=== PATIENT | male | born 1935 | race Caucasian/White ===

== ENCOUNTER → 2023-03-10 | Outpatient (CLI) | payer MEDICARE, SELFPAY ==
--- NOTE | 2023-03-10 17:11 | MRI_ITS ---
EXAM: MR LUMBAR SPINE WITHOUT INTRAVENOUS CONTRAST CLINICAL INDICATION: spinal stenosis TECHNIQUE: Multiplanar and multisequence MR images of the lumbar spine without intravenous contrast. Magnetic field strength 1.5 T. COMPARISON: Lumbar spine x-ray 02/23/2023. FINDINGS: VERTEBRAE: Small hemangioma T12 vertebral body. SPINAL CORD: Unremarkable. Normal position and signal intensity of the conus medullaris. SOFT TISSUES: Unremarkable. KIDNEYS AND URETERS: Cyst measuring up to 6 cm right kidney. DISCS/SPINAL CANAL/NEURAL FORAMINA: L1-L2: Unremarkable. Normal disc height and morphology. Normal spinal canal and lateral recesses. Normal neuroforamina. L2-L3: Mild disc space narrowing and loss of disc signal. Moderate generalized disc bulge. The canal is narrowed to 7 mm. Moderate bilateral facet arthropathy and ligamentum flavum thickening. Normal neuroforamina. L3-L4: Mild disc space narrowing and loss of disc signal. Moderate generalized disc bulge. Canal is narrowed to 6 mm. Moderate bilateral facet arthropathy. Mild bilateral ligamentum flavum thickening. Normal neuroforamina. L4-L5: Moderate disc space narrowing and loss of this signal. Prominent generalized disc bulge. Canal is narrowed to 4.5 mm. Marked effacement of the CSF around the cauda equina with cauda equina compression. Marked bilateral facet arthropathy and moderate ligamentum flavum thickening bilaterally. Normal neuroforamina. L5-S1: Severe disc space narrowing and loss of disc signal. Type I Modic endplate changes. Mild generalized disc bulge. Canal measures 9 mm. Moderate bilateral facet arthropathy and ligamentum flavum thickening. Normal neuroforamina. MRI/Spine Lumbar (Routine) IMPRESSION: 1. Severe spinal stenosis L4-L5 due to generalized disc bulge, severe facet arthropathy and ligamentum flavum thickening. Marked cauda equina compression. 2. Degenerative disc disease L5-S1 with Modic type I endplate changes. Borderline spinal stenosis due to generalized disc bulge, ligamentum flavum thickening, and facet arthropathy. 3. Moderate spinal stenosis L2-L3 due to generalized disc bulge and mild ligamentum flavum thickening. 4. Moderate spinal stenosis L3-L4 due to generalized disc bulge and mild ligamentum flavum thickening. 5. Cyst measuring up to 6 cm right kidney. No follow-up imaging necessary. Electronically Signed: Anup Villalobos MD at 1:07 EDT ,
== END | disposition home or self-care (01) ==
LOC: MRI 17:07
PROVIDERS: PCP Internal Medicine; Referring Provider Orthopaedic Surgery; Visit Provider Orthopaedic Surgery
DX: M48.061 Spinal stenosis, lumbar region without neurogenic claudication (principal)
CPT/HCPCS: 72148

== ENCOUNTER 2023-03-20 11:30 | Observation (INO) | payer MEDICARE, SELFPAY ==
[2023-03-18 14:47] LABS: Hematocrit 33.4 % (40-54); Hemoglobin 11.1 g/dL (13.0-16.5); Mean Corp Hgb Conc 33.2 g/dL (32-36); Mean Corpuscular Hgb 31.3 pg (27.0-32.0); Mean Corpuscular Volume 94.1 fL (80-94); Mean Platelet Vol. 8.9 fl (6.2-12.0); Platelet Count 283 K/mm3 (150-450); RBC Distribution Width CV 12.4 % (11.6-14.6); RBC Distribution Width SD 43.6 fl (35.1-43.9); Red Blood Count 3.55 M/mm3 (4.6-6.2); White Blood Count 4.8 K/mm3 (4.4-11.0)
[2023-03-18 14:50] LABS: Anion Gap 4 (5-15); BUN 13 mg/dL (7-18); BUN/Creat Ratio 10.2 RATIO (10-20); Calcium,Total 9.3 mg/dL (8.5-10.1); Chloride 103 mmol/L (98-107); Creatinine, Serum 1.27 mg/dL (0.70-1.30); EST Glomerular Filtration Rate 57 mL/min (>60); Est Glom Filt Rate - Afr Amer 69 mL/min (>60); Glucose 126 mg/dL (74-106); Sodium Level 135 mmol/L (136-145)
[2023-03-20] VITALS (11 sets, daily range): BP systolic 98–137; BP diastolic 47–93; PULSE 55–72; RESP 16–18; TEMP 36.5–37; O2SAT 94–100; BMI 24.6
[2023-03-20] MEDS: Lactated Ringers 1,000 ML 15 ML IV (07:22)
--- NOTE | 2023-03-20 08:39 | PCM.HP.STD ---
[facility] - General General Date of Service: 03/20/23 Chief Complaint: BPH with obstruction HPI Narrative DEYA BANKS, is a 87 M who presents for transurethral resection of the prostate for obstructing prostate obstruction. [facility] Medical History (Updated 03/13/23 @ 10:08 by Eve Rosenbaum) Anemia Atherosclerotic heart disease of [place] coronary artery without angina pectoris Back pain Bladder disease BPH (benign prostatic hyperplasia) Cardiology follow-up encounter Diverticulosis Essential hypertension History of echocardiogram History of heart attack History of multiple pulmonary nodules History of renal disease History of stress test Influenza A Lymphoma Mixed hyperlipidemia Non-smoker Old myocardial infarction Osteoarthritis Prostate disease Wears glasses Wears hearing aid Home Medications simvastatin 20 mg tablet 20 mg PO QHS 09/07/19 [History Last Taken Unknown] folic acid 400 mcg tablet 800 mcg PO DAILY 09/11/21 [History Last Taken Unknown] cholecalciferol (vitamin D3) 25 mcg (1,000 unit) capsule 25 mcg PO DAILY 10/22/22 [History Last Taken Unknown] lisinopril 20 mg tablet 20 mg PO DAILY 10/22/22 [History Last Taken Unknown] amlodipine 5 mg tablet 5 mg PO DAILY 02/25/23 [History Last Taken Unknown] ciprofloxacin HCl 500 mg tablet (Cipro) 500 mg PO BID #14 tabs 03/20/23 [Rx Last Taken Unknown] Allergy/AdvReac Type Severity Reaction Status Date / Time milk AdvReac Severe Diarrhea Verified 03/13/23 09:55 grass pollen AdvReac Unknown Unknown Verified 03/13/23 09:55 Family History Father Cancer Lung Mother Cancer Gastric Hypertension Brother Cancer Lung Brother Melanoma Surgical History (Updated 03/13/23 @ 10:08 by Eve Rosenbaum) History of coronary artery bypass surgery (~1989) History of gastrectomy Hx of colonoscopy Hx of esophagogastroduodenoscopy Hx of left cataract extraction Hx of right cataract extraction Social History Smoking Status: Never smoker alcohol intake: never substance use type: does not use caffeine: Yes Type: carbonated beverages Number of servings: 1 and coffee Number of servings: 3 Vital Signs Vital Signs Vital Signs: 03/20/23 07:25 03/20/23 07:25 Temperature 97.9 F Temperature Source Temporal Pulse Rate 56 L Respiratory Rate 18 Respiratory Pattern Normal Blood Pressure 137/75 H Blood Pressure Mean 95 Blood Pressure Source Monitor Blood Pressure Position Semi-Fowlers Blood Pressure Location Left Arm Pulse Ox 100 Oxygen Delivery Method Room Air Weight Weight: 75.659 kg Body Mass Index (BMI) 24.6 Results Lab / Micro Data 03/18/23 14:14 03/18/23 14:14
--- NOTE | 2023-03-20 08:40 | DCINST_ITS ---
Discharge Instructions Diet Discharge Diet: No restrictions Activity Discharge Activity: Return to Normal Activity Lifting Restrictions: No heavy lifting for 2 weeks Follow Up Care Please Follow Up With: Paul Nagy MD When: Call for appointment 2 weeks Test Results: Test results from this visit will be discussed in further detail at your follow- up appointment, if applicable. Discharge Plan Admission Primary Reason for Your Visit: [facility] Attending Provider: Paul Nagy Primary Care Provider: Armin Helton Instructions Patient Instructions: [facility] Home Recovery Discharge Orders/Prescriptions Prescriptions: New ciprofloxacin HCl [Cipro] 500 mg tablet 500 mg PO BID Qty: 14 0RF Continued simvastatin 20 mg tablet 20 mg PO QHS folic acid 400 mcg tablet 800 mcg PO DAILY cholecalciferol (vitamin D3) 25 mcg (1,000 unit) capsule 25 mcg PO DAILY lisinopril 20 mg tablet 20 mg PO DAILY amlodipine 5 mg tablet 5 mg PO DAILY Discontinued doxazosin 4 mg tablet 4 mg PO QHS aspirin [Ecotrin Low Strength] 81 mg tablet,delayed release (DR/EC) 81 mg PO DAILY Referrals / Follow Up: Paul Nagy MD [Med Staff - Active Staff] - Armin Helton MD [Primary Care Provider] - Disposition Disposition (needs filled in before D/C Order can be placed): Home, Self Care
[2023-03-20] MEDS: Cefazolin 2 GM in 0.9% Normal Saline 100 ML IV (08:55)
--- NOTE | 2023-03-20 08:55 | PROS_PTH ---
PATIENT: DEYA BANKS LOC: MS3 U#:[id number] AGE/SX: 87/M ROOM: [facility] RE03/20/[address]: Dr. Paul Nagy MD : 1935 BED: 1 DIS: 03/21/2023 SPEC #: [id number] RECD: 03/20/23 14:24 STATUS: ROB DAIGLE #: [id number] MARY JANE: 03/20/23 08:[address]: Paul Nagy DEPT: SURGICAL PATHOLOGY RECD BY: Lizzie Estrada ENTERED: 03/23/23 08:13 SP TYPE: TURP OTHR DR: Dr. Armin Helton MD Tissues: Prostate, NOS Procedures: Surgery Specimen Level IV HEADER OPERATION: Transurethral resection of prostate with Olympus PRE-OP DIAGNOSIS: BPH with obstruction TISSUE SUBMITTED: Prostate MICROSCOPIC DIAGNOSIS Prostate, transurethral resection: Benign prostatic hyperplasia, predominantly stromal type. SJ:cristal 03/24/2023 MICROSCOPIC DESCRIPTION Slides are reviewed. GROSS DESCRIPTION Received is one container labeled with the patient's name and designated prostate. The specimen consists of multiple irregular fragments of pink-giles, rubbery, soft tissue that in aggregate weigh 12.8 gm and measure in aggregate 6.0 x 5.0 x 2.5 cm. Scientific Linguist tissue is submitted in ten cassettes. CLAUS:cristal 03/23/2023 TC:5 CPT: 84822
--- NOTE | 2023-03-20 09:42 | PCM.OPRPT ---
Report of Operation Date of Procedure: 03/20/23 Pre-Operative Diagnosis: BPH with obstruction Post-Operative Diagnosis: BPH with obstruction with distended bladder Surgery/Procedure Performed:: Transurethral section of prostate Description of Surgical Findings:: In the preoperative setting I discussed with the patient how the surgery would be done with expect afterwards. We discussed how a prostate resection is done and we discussed the risk of the surgery including, bleeding, infection, retrograde ejaculation, changes with ejaculation or intercourse,. We discussed the possibility that the resection of the prostate may not alleviate his urinary symptoms. We discussed the small risk of developing scar tissue along the urethral channel and strictures. We also discussed the chance of the prostate could grow back and he may need further surgery or treatment in the future for prostate problems. Patient was taken back to the operating room, timeout procedure was performed, he was identified and marked and placed on the operating room table. He underwent general anesthesia. He was placed in dorsolithotomy position. Penis and testicles were prepped and draped in usual sterile fashion. Went into the bladder using the visual obturator with a resectoscope. Once inside the bladder identified the right and left ureteral orifice. I then identified the prostate and the anatomy of the prostate. I marked out the area of the sphincter and the verumontanum was identified. I then proceeded with the prostate resection first resected the median lobe. And then resected the right lobe of the prostate. Then to resect the left lobe of the prostate. I then resected the apical tissue of the prostate. This was a complete resection of all obstructive tissue to improve voiding and relieve obstruction. I then made sure that there was no injury to the sphincter or the verumontanum was still intact. At the end of the resection all the chips were Ellik out of the bladder. I then identified the left and right ureteral orifice and these were confirmed to be in good position and effluxing and not injured. The resectoscope was removed, a 22 [place] catheter was placed into the bladder on continuous irrigation. And the urine was fairly light pink color and draining normally. He was taken back to the PACU in good condition. Type of Anesthesia: General Drains: 22fr 3 way Admit VTE Documentation VTE Present on Admission: No VTE Mechan Device Prophylaxis: SCD's VTE Pharm Prophylaxis ordered?: No
[2023-03-20] MEDS: 0.9% Normal Saline 1,000 ML 125 ML IV ×2 (11:15→18:07)
--- NOTE | 2023-03-20 16:11 | NURSING ---
Dangled on edge of bed for a few minutes. This RN then assisted pt into chair. Call light, phone and bedside table in reach.
[2023-03-20] MEDS: Atorvastatin Calcium 10 MG Tablet PO (21:23)
[2023-03-20] MEDS: amLODIPine 5 MG Tablet PO (21:23)
[2023-03-20] MEDS: Lisinopril 20 MG Tablet PO (21:23)
[2023-03-20] MEDS: Ciprofloxacin 400 MG/200 ML BAG 200 MG IV (21:23)
[2023-03-20] MEDS: Docusate Sodium 100 MG Capsule 200 MG PO (21:23)
[2023-03-21] MEDS: 0.9% Normal Saline 1,000 ML 125 ML IV (03:01)
[2023-03-21] MEDS: 0.9% Saline Lock 10 ML Syringe IV (03:02)
[2023-03-21 03:26] VITALS: BP 113/56; PULSE 65; RESP 16; TEMP 36.9; O2SAT 98
--- NOTE | 2023-03-21 06:49 | PCM.PN.GU ---
Subjective Subjective 87-year-old male status post TURP we will remove the catheter today for voiding trial he does have a very large distended bladder so I may take him a while to start urinating. Objective Data Objective Data Vital Signs: Vital Signs Temp Pulse Resp BP Pulse Ox O2 Del Method 98.5 F 65 16 113/56 L 98 Room Air 03/21/23 03:26 03/21/23 03:26 03/21/23 03:26 03/21/23 03:26 03/21/23 03:03/21/23 03:26 Oxygen Delivery Method Room Air Weight: 75.659 kg Body Mass Index (BMI) 24.6 Intake & Output: Intake and Output for Last 24 Hours 03/19/23 03/20/23 03/21/23 23:59 23:59 23:59 Intake Total 2777.58 / 2777.58 456.25 / 456.25 Output Total 1900 / 1900 900 / 900 Balance 877.58 / 877.58 -443.75 / -443.75 Lab / Micro Data 03/18/23 14:14 03/18/23 14:14
[2023-03-21 08:11] VITALS: BP 125/61; PULSE 64; RESP 16; TEMP 36.6; O2SAT 97
[2023-03-21] MEDS: Docusate Sodium 100 MG Capsule 200 MG PO (08:14)
[2023-03-21] MEDS: Ciprofloxacin 400 MG/200 ML BAG 200 MG IV (08:14)
[2023-03-21 18:08] VITALS: BP 123/67; PULSE 58; RESP 16; TEMP 36.8; O2SAT 100
== END 2023-03-21 18:19 | disposition home or self-care (01) ==
LOC: SDC 11:38 → MS3 11:38
PROVIDERS: Anesthesiology; Admitting Provider Urology; PCP Internal Medicine; Referring Provider Urology; Visit Provider Urology
PROC: (CPT 52601; principal; 2023-03-20 08:45)
DX: N40.1 Benign prostatic hyperplasia with lower urinary tract symptoms (principal); I25.10 Atherosclerotic heart disease of native coronary artery without angina pectoris; N13.8 Other obstructive and reflux uropathy; N32.89 Other specified disorders of bladder; Z95.1 Presence of aortocoronary bypass graft; E78.2 Mixed hyperlipidemia; I25.2 Old myocardial infarction; Z79.899 Other long term (current) drug therapy
CPT/HCPCS: 52601; 00914; 36415; 51702; 80048; 85027; 88305; 93005; 96361; 96365; 96366; 99221; J7030; J7120; A4216; G0378; J0744; J2405

== ENCOUNTER → 2023-05-11 | Outpatient (CLI) | payer MEDICARE, SELFPAY ==
[2023-04-29 12:23] LABS: Absolute Lymphocyte Count 1.78 X10^3/uL (0.83-4.51); Absolute Neutrophil Count 2.3 X10^3/uL (2.0-7.7); Basophil# 0.03 X10^3/uL; Basophil% 0.6 % (0-1); Eosinophil# 0.13 X10^3/uL; Eosinophils% 2.8 % (0-5); Hematocrit 34.7 % (40-54); Hemoglobin 11.4 g/dL (13.0-16.5); Lymphocyte # 1.78 X10^3/ul (0.83-4.51); Lymphocyte % 37.8 % (19-41); Mean Corp Hgb Conc 32.9 g/dL (32-36); Mean Corpuscular Hgb 30.8 pg (27.0-32.0); Mean Corpuscular Volume 93.8 fL (80-94); Mean Platelet Vol. 8.4 fl (6.2-12.0); Monocyte# 0.44 X10^3/uL; Monocyte% 9.3 % (0-10); NRBC Flagged by Analyzer 0 % (0-5); Neutrophil # 2.32 X10^3/uL (2.7-7.7); Neutrophil % 49.3 % (47-70); Platelet Count 333 K/mm3 (150-450); RBC Distribution Width CV 12.7 % (11.6-14.6); RBC Distribution Width SD 43.9 fl (35.1-43.9); White Blood Count 4.7 K/mm3 (4.4-11.0)
[2023-04-29 13:04] LABS: Magnesium 2.2 mg/dL (1.6-2.6)
[2023-04-29 13:41] LABS: HIV - WCH Non-Reactive (Nonreactive); Hepatitis B Surface Antibody Non-Reactive; Hepatitis C Antibody Non-Reactive (Nonreactive)
[2023-04-30 05:07] LABS: Hepatitis A AB, Total Negative (Negative)
== END | disposition home or self-care (01) ==
LOC: PAT 06-19 08:55
PROVIDERS: Anesthesiology; PCP Internal Medicine; Referring Provider Orthopaedic Surgery; Visit Provider Orthopaedic Surgery
DX: Z01.812 Encounter for preprocedural laboratory examination (principal); Z01.818 Encounter for other preprocedural examination
CPT/HCPCS: 36415; 83735; 85025; 86703; 86706; 86708; 86803; 87081

== ENCOUNTER 2023-06-29 10:45 | Observation (INO) | payer MEDICARE, SELFPAY ==
--- NOTE | 2023-06-26 09:27 | PCM.HP.BLA ---
History and Physical Add?Addendum Date of Service: 02/25/23 MR#: [id number] Acct: [id number] Name: DEYA BANKS Rep #: [id number] : 1935 Provider: Dr. Wilbert Bauer DO Age/Sex: 87/M [place] [facility] [place] Status: Signed Intake Vital Signs 10/22/2313:05 02/25/2314:45 Height 5 ft 9 in 5 ft 9 in Weight: 172 lb 8 oz 168 lb BMI 25.4 24.7 BP 136/78 H Blood Pressure Location Lt brachial Position Sitting Respiration 16 Pulse 72 Pulse Source Auscultation Intake Visit Reasons: LUMBER SPINE Chief Complaint: low back pain, bilateral feet numbness Is patient in pain?: Yes (low back ) Pain scale (1-10): 1 Allergies milk Adverse Reaction (Severe, Verified 02/25/23 14:50) Diarrheagrass pollen Adverse Reaction (Unknown, Verified 02/25/23 14:50) Unknown Medications aspirin 81 mg tablet,delayed release (Ecotrin Low Strength) 81 mg PO DAILY 09/07/19 [History Confirmed 10/22/22] doxazosin 4 mg tablet 4 mg PO DAILY 09/07/19 [History Confirmed 10/22/22] simvastatin 20 mg tablet 20 mg PO DAILY 09/07/19 [History Confirmed 10/22/22] folic acid 400 mcg tablet 800 mcg PO DAILY 09/11/21 [History Confirmed 10/22/22] cholecalciferol (vitamin D3) 25 mcg (1,000 unit) capsule 25 mcg PO DAILY 10/22/22 [History Confirmed 10/22/22] lisinopril 20 mg tablet 20 mg PO DAILY 10/22/22 [History Confirmed 10/22/22] amlodipine 5 mg tablet 5 mg PO DAILY 02/25/23 [History Confirmed 02/25/23] [facility] [place] Medical History Atherosclerotic heart disease of [place] coronary artery without angina pectoris BPH (benign prostatic hyperplasia) Diverticulosis Essential hypertension History of multiple pulmonary nodules Influenza A Lymphoma Mixed hyperlipidemia Old myocardial infarction Osteoarthritis Surgical History History of coronary artery bypass surgery (~1989) History of gastrectomy Family History Father Cancer LungMother Cancer Gastric HypertensionBrother Cancer LungBrother Melanoma Social History Smoking Status: Never smoker alcohol intake: never substance use type: does not use caffeine: Yes Type: carbonated beverages Number of servings: 1 and coffee Number of servings: 3 HPI LUMBER SPINE Chief Complaint: low back pain, bilateral feet numbness Details: Parts of this documentation were recorded by a scribe, this documentation accurately reflects the service provided and the decisions made by me, Dr. Wilbert Bauer, DO 02/25/23 [id number]. DEYA BANKS is a 87 year old M here today for low back pain and bilateral feet numbness after standing for 2 mins or more. He advises he has been experiencing these symptoms for the last 2 years and is gradually getting worse. He has almost fallen once d/t his foot numbness. He states he sits down and the numbness is relieved after about 1 minute. He raters his low back pain is an intermittent ache in the center of his low back. He is not experiencing radiating back pain. Pt. is scheduled to have prostate surgery in March 20, 2023 and is not taking aspirin at this time. He has had no recent back Xrays or MRI. He had a CT of hiss chest in July 2022 and has brought the report d/t having a reference to his spine. Mr. Banks is a most delightful gentleman 87 years old has a chief complaint of numbness in his feet and his calfs. This started gradually 2 or 3 years ago and has gradually worsened over time. He cannot stand for very long because he gets numb or and number as time goes on he has to sit down and he gets almost immediate relief. He has some low back pain but not all that much. If he is walking in a grocery store he leans forward on the cart as that helps him keep going. Basically this gentleman is describing a neurogenic claudication. He is not diabetic. On examination he can stand on his toes and he can stand on his heels without too much of a difficulty. He has little pain with extension or flexion at this time. He has excellent motor strength of all the major muscle groups of both lower extremities. He has barely perceptible patellar reflexes and absent Achilles reflexes bilaterally. He has no long tract signs. Clonus is absent and Babinski's are downgoing. Plain x-rays of the lumbar spine demonstrate degeneration particularly at L5-S1 which is quite advanced. He has a slight degenerative listhesis of L4 and L5. I suspect he has significant spinal stenosis particularly at L4-5. Ordering an MRI scan of the lumbar spine. I will see him after the MRI scan and make further recommendations. I explained to him that if he does not have spinal stenosis then my second guess would be that he has an idiopathic neuropathy. In that event we would order EMG nerve conduction studies of both lower extremities. I will see him after the MRI scan. Coding Level of Care Code Off vis,new,level 3 Diagnoses Spinal stenosis of lumbar region with neurogenic claudication M48.062 Neurogenic claudication status: with neurogenic claudication Time Spent (min) 30 Assessment and Plan Assessment and Plan (1) Spinal stenosis of lumbar region:
[2023-06-29] VITALS (13 sets, daily range): BP systolic 111–149; BP diastolic 54–88; PULSE 64–86; RESP 14–18; TEMP 36–37.2; O2SAT 95–100; BMI 25.0
[2023-06-29] MEDS: Lactated Ringers 1,000 ML 15 ML IV ×3 (06:29→12:21)
[2023-06-29] MEDS: Acetaminophen 500 MG Tablet 1000 MG PO ×3 (06:30→21:48)
[2023-06-29] MEDS: Magnesium 1 GM over 15 mins IV (06:30)
--- NOTE | 2023-06-29 06:30 | RAD_ITS ---
STUDY: X-RAY - LUMBAR SPINE REASON FOR EXAM: Male, 87 years old. LAMINECTOMY L3-4, L4-5 TECHNIQUE: Single lateral view(s) of the lumbar spine were obtained. COMPARISON: None FINDINGS: The localization instrument is seen posterior to the L5-S1 disc space level. RAD/Spine 1 View Any Level IMPRESSION: The localization and treatment is seen posterior to the L5-S1 disc space level. Electronically Signed: Pawel Bhatt MD at 8:48 EDT ,
[2023-06-29] MEDS: Cefazolin 2 GM in 0.9% Normal Saline (100mL Bag) 100 ML IV (07:49)
[2023-06-29 08:13] LABS: Bedside Glucose 52 mg/dL (74-106)
[2023-06-29 08:13] LABS: Bedside Glucose 53 mg/dL (74-106)
[2023-06-29] MEDS: THROMBIN (RECOMBINANT) 20,000 UNIT VIAL 20000 UNIT TOPICAL (08:28)
--- NOTE | 2023-06-29 11:00 | PCM.OPRPT ---
Report of Operation Description of Surgical Findings:: Preoperative diagnosis: Spinal stenosis L4-5 and L3-4 Postoperative diagnosis: Same Procedures: #1 lumbar laminectomy decompression L4-5 CPT code 70958 #2 lumbar laminectomy decompression L3-4 CPT code 58005/51 Surgeon: Dr. Bauer First assistants: Dr. Dodd and Elvia Araujo NP Anesthesia: General endotracheal by [employer] sales and service associate EBL: Less than 50 cc Drains: None Complications: None Procedure: Patient was taken to the OR where he was placed under general endotracheal anesthesia. A Ayala catheter was inserted. Neuro monitoring placed her leads on the patient. The patient was then moved onto the prone position on the Geoffrey frame. After appropriate positioning with care to protect his bony prominences his genitalia his brachial plexus bilaterally his ulnar nerves of both elbows and the cervical spine and facial features the back was prepped and draped in standard fashion. I made a longitudinal incision centered over what we thought would be L4-5 this was a very small incision. I opened the lumbar fascia to the left of the spinous processes elevated and gently and put a marker in place at what we thought would be L4-5 however turned out that it was L5-S1. So I simply moved up 1 level and marked it and extended the incision cephalad. Then open the rest of the lumbar fascia in the midline started elevating the paravertebral muscles off the lamina of L3 and the lamina of L4 and perhaps a very top of the lamina of S1. This was then packed after irrigation. Dr. Miranda then opened the right side doing the same exact thing elevated the paravertebral muscles off the lamina of 3 and the lamina of L4. This was then packed. I then removed the packing from my side got any bleeders that were available. We did the same thing on the right side. The self-retaining super slide retractors were then put in place. Extraneous tissue was removed with both cautery and Dave rongeurs. This was done on both sides. I then began removal of first the spinous process of L4 this was done using double-action rongeurs. All the way down to the lamina. I then thinned the lamina down especially in the midline with the double-action rongeurs I release ligamentum flavum off the underside of the lamina on both the right and left sides. Began the laminectomy then with 45 degree Kerrison rongeurs. This was done until the top of the ligamentum flavum was reached. We then split the ligamentum flavum in the middle where its at its weakest point. I then used curettes to release the ligamentum flavum off the top of the lamina of L5. This was done on both sides. Then began removal of the ligamentum flavum removing more from the right side with 45 degree Kerrison rongeurs at times I used cottonoids to protect the dura and continue the removal of the ligamentum flavum and open the lateral recess completely including a little removal of bone. Probably medial facet. This was also done on the left side. Dr. Miranda removing the remaining ligamentum flavum from the lateral recess and opening and. We then checked both foramina and they were found to be quite open. We then moved up to the next level I used a double-action rongeurs again to remove the spinous process of L3. Again I thinned down the lamina with double-action rongeurs I release ligamentum flavum off the underside of the lamina of L3 and began the process of laminectomy on both sides. I then split the ligamentum flavum in its midline as I did at the level below and released it first off the top of the L4 lamina on both sides. I then used the 45 degree Kerrison rongeurs to begin the removal of the ligamentum flavum. Again the dura was protected with cottonoids. Dr. Miranda then removed the remaining ligamentum flavum off the left side from the right side. This completely decompressed the nerve roots on both sides and the foramina below were found to be quite open. Note that thorough irrigation was carried out every 15 minutes or so in the course of the case to prevent infection. At the end of the case we had excellent hemostasis. The decision was made not to put a drain in place. I then reapproximated the lumbar fascia using [id number] suture with #1 Vicryl followed by closure of subcutaneous tissues with 2-0 Vicryl in interrupted fashion. The skin was approximated using skin clips. The patient was then recovered in the OR moved to his hospital bed and taken to recovery in satisfactory condition. This is the end of operative summary on Gen Myers. This is Dr. Bauer dictating.
[2023-06-29] MEDS: Lactated Ringers 1,000 ML 100 ML IV (13:34)
[2023-06-29] MEDS: Cefazolin 1 GM/50 ML BAG IV ×2 (13:46→21:47)
[2023-06-29 14:19] LABS: Bedside Glucose 146 mg/dL (74-106)
--- NOTE | 2023-06-29 14:58 | PN.HOSP_ITS ---
Subjective Subjective This 87-year-old white male was seen at the request of spinal surgery regarding medical management after he underwent a laminectomy today. Patient had a decompression L4-5 and L3-4. Past medical history includes essential hypertension, lymphoma, coronary artery disease, and hyperlipidemia. Patient does not complain of any shortness of breath or chest pain at the time of my examination. His family was in the room I talk with him briefly also. Objective Data Objective Data Vital Signs: Vital Signs Temp Pulse Resp BP Pulse Ox O2 Del Method O2 Flow Rate 97.4 F L 71 18 143/88 H 100 Room Air 4 06/29/23 12:50 06/29/23 12:50 06/29/23 12:50 06/29/23 12:50 06/29/23 13:41 06/29/23 13:41 06/29/23 12:15 Oxygen Flow Rate (L/min) 4 Oxygen Delivery Method Room Air Weight: 75.659 kg Body Mass Index (BMI) 25.0 Intake & Output: Intake and Output for Last 24 Hours 06/27/23 06/28/23 06/29/23 23:59 23:59 23:59 Intake Total 1294.75 / 1294.75 Output Total 1180 / 1180 Balance 114.75 / 114.75 Lab / Micro Data Labs: Laboratory Results - last 24 hr 06/29/23 06:11: POC Glucose 53 L 06/29/23 06:12: POC Glucose 52 L 06/29/23 14:00: POC Glucose 146 H Radiography Diagnostic Testing: Radiology Impression Spine X-Ray 06/29/23 06:30 IMPRESSION: The localization and treatment is seen posterior to the L5-S1 disc space level. Electronically Signed: Pawel Bhatt MD at 8:48 EDT , Physical Exam Const alert, oriented x3, no apparent distress, average body habitus and healthy appearing Constitutional Narrative: Patient appears younger than stated age General Appearance: cooperative, well kempt and well developed Orientation / Consciousness: awake, oriented to person, oriented to place and oriented to time HEENT normocephalic, head/scalp atraumatic and moist oral mucous membranes Eyes PERRL, EOMs intact bilaterally and conjunctivae normal Neck supple, no JVD, thyroid normal and no carotid bruits General: trachea midline Resp normal respiratory effort, no retractions, no use of accessory muscles and clear to auscultation bilaterally Auscultation: Negative for rales, rhonchi or wheezes Cardio regular rate, regular rhythm, S1 normal heart sound, S2 normal heart sound, no murmurs, no rub and no gallops GI normal to inspection, nondistended, normoactive bowel sounds, soft to palpation, non-tender and non-distended Extremity no clubbing, cyanosis or edema Skin no rashes or lesions noted General Skin Exam: no breakdown Neuro oriented x3, CN's II-XII intact bilaterally, moves all extremities, no focal motor deficits and no sensory deficits noted Sensorium / Orientation: awake, alert, oriented to person, oriented to place and oriented to time Speech: speech normal Psych affect normal Assessment & Plan Assessment/Plan (1) Essential hypertension: PLAN: Plan 1. 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
[2023-06-29] MEDS: Ensure Surgery 237 ML LIQUID PO (17:28)
[2023-06-29] MEDS: Lisinopril 20 MG Tablet PO (21:48)
[2023-06-29] MEDS: amLODIPine 5 MG Tablet PO (21:48)
[2023-06-29] MEDS: Atorvastatin Calcium 10 MG Tablet PO (21:48)
[2023-06-30 00:50] VITALS: BP 112/63; PULSE 71; RESP 16; TEMP 37.2; O2SAT 97
[2023-06-30 04:50] VITALS: BP 110/66; PULSE 61; RESP 16; TEMP 37; O2SAT 97
[2023-06-30] MEDS: Acetaminophen 500 MG Tablet 1000 MG PO ×3 (05:26→20:38)
[2023-06-30 08:15] VITALS: O2SAT 100
[2023-06-30] MEDS: Ensure Surgery 237 ML LIQUID PO ×2 (09:22→17:09)
--- NOTE | 2023-06-30 10:35 | CASEMGMT ---
[facility] Assessment: Face to Face with pt for initial transition planning/care coordination assessment. RN JONO introduced self and role at [facility], pt voices understanding and consents to assessment. Pt is A&O x4 and answers all questions appropriately at this time. Pt sitting up in chair in no distress. Care providers, pharmacy, and demographics verified/updated. Admitting Dx: decompression laminectomy L4-5 and L3-4 PCP:Danie Specialists:reinaldo Bauer; YOLIS, cardio [facility]erred [facility] Prescription Benefit: yes LNOK: Ashanti Myers, Living Arrangements: Pt lives with in a two story home with no steps to enter. Pt has a bed and bath on main floor. Pt reports he was I in ADL's prior to surgery and denies concerns at home. Transportation: Pt drives self and denies concerns with transportation. Pt or dtr to provide transportation until pt can drive again. DME:w/c, cane- Does not use [facility] HHC/SNF: Denies hx of Pt states no concerns with going home at time of dc. Pt states no further concerns/needs. CM to follow. Advised pt to ask CM if any further question/concerns/needs arise, voices understanding. Pt Goal: Home Plan: Home
[2023-06-30 11:00] VITALS: BP 121/93; PULSE 69; RESP 18; TEMP 36.6; O2SAT 98
--- NOTE | 2023-06-30 11:12 | PCM.PROGNOTE ---
Subjective Subjective Patient seen and examined. He feels well and has no complaints. He had an uneventful night. Pain is well controlled. He did well with PT/OT. TOday is POD 1 for lumbar laminectomy of L3-4 and L4-5. Review of systems is otherwise negative. Objective Data Objective Data Vital Signs: Vital Signs Temp Pulse Resp BP Pulse Ox O2 Del Method O2 Flow Rate 98.6 F 61 16 110/66 97 Room Air 4 06/30/23 04:50 06/30/23 04:50 06/30/23 04:50 06/30/23 04:50 06/30/23 04:50 06/30/23 04:50 06/29/23 12:15 Oxygen Flow Rate (L/min) 4 Oxygen Delivery Method Room Air Weight: 166 lb 12.8 oz Body Mass Index (BMI) 25.0 Intake & Output: Intake and Output for Last 24 Hours 06/28/23 06/29/23 06/30/23 23:59 23:59 23:59 Intake Total 2169.75 / 2169.75 175 / 175 Output Total 1730 / 2130 700 / 700 Balance 439.75 / 39.75 -525 / -525 Lab / Micro Data Labs: Laboratory Results - last 24 hr 06/29/23 14:00: POC Glucose 146 H Physical Exam Const alert, oriented x3 and no apparent distress General Appearance: cooperative HEENT normocephalic, head/scalp atraumatic, moist oral mucous membranes and oropharynx normal Eyes PERRL and EOMs intact bilaterally Neck no lymphadenopathy and supple Lymph Lymphatic: no lymphadenopathy noted and no lymphedema noted Resp normal respiratory effort, normal air movement and clear to auscultation bilaterally Cardio regular rate, regular rhythm, S1 normal heart sound, S2 normal heart sound and no murmurs GI normal to inspection, nondistended, normoactive bowel sounds, soft to palpation, non-tender and non-distended Extremity normal capillary refill, no clubbing, cyanosis or edema and no calf tenderness General Extremity: no tenderness to palpation of joints or extremities Skin Skin Narrative: intact dressing over lower spine at site of surgery General Skin Exam: no breakdown Neuro CN's II-XII intact bilaterally, no focal motor deficits, no sensory deficits noted and deep tendon reflexes 2+ bilaterally Motor Exam: strength 5/5 throughout and general weakness Psych thought process normal and cooperative Appearance: appropriate Assessment & Plan Assessment/Plan (1) Spinal stenosis of lumbar region: QUALIFIERS: Neurogenic claudication status: with neurogenic claudication Qualified Code(s): M48.062 - Spinal stenosis, lumbar region with neurogenic claudication PLAN: Plan # Lumbar spine stenosis s/p lumbar laminectomy at L3-4 and L4-5 management as per spine surgery PT/OT on board fall precautions on PO tylenol, oxycodone and morphine prn for pain #Hyperlipidemia: on statin #CAD: stable. s/p CABG ~ 1989. #Hypertension: on amlodipine and lisinopril. #History of lymphoma: stable. S/p treatment DVT prophylaxis; SCDs Disposition: as per primary team. Charges/Coding Visit Charges Inpatient E&M: 10078 Subs Hosp L2
--- NOTE | 2023-06-30 13:48 | DCINST_ITS ---
Discharge Instructions Activity May shower in (days): 4 May resume sexual activity in: 6 weeks Lifting Restrictions: 15# Dressing / Incision Remove Dressing in: 3 days Follow Up Care Test Results: Test results from this visit will be discussed in further detail at your follow- up appointment, if applicable. Discharge Plan Admission Admit Date/Time: 06/29/23 10:45 Primary Reason for Your Visit: back surgery Attending Provider: Wilbert Bauer Primary Care Provider: Armin Helton Consulting Providers: Marion Arizmendi; Randy Caldwell; Ania Schultz; Ania Correa; Vadim Joseph; Hanny Barroso; Ivy Cristina; Hiram Shea; Hiram Vance; Low Barros; Aamir Joyce; Suraj Hong; Zuhair Agee; Gen Cuevas; Jerry Jo; Carol Blake; Barry Schaefer; Valentina Peña; Jonel Fuchs; Lj Keller; Verona Hatfield; Eliseo Barragan; Maribell Bear NP; Inderjit Jones Discharge Orders/Prescriptions Prescriptions: No Action simvastatin 20 mg tablet 20 mg PO QHS folic acid 400 mcg tablet 800 mcg PO QHS cholecalciferol (vitamin D3) 25 mcg (1,000 unit) capsule 25 mcg PO QHS lisinopril 20 mg tablet 20 mg PO QHS amlodipine 5 mg tablet 5 mg PO QHS Referrals / Follow Up: Armin Helton MD [Primary Care Provider] - Disposition Disposition (needs filled in before D/C Order can be placed): Home, Self Care
--- NOTE | 2023-06-30 13:50 | PCM.DC.SUM ---
Providers Date of Admission: 06/29/23 Primary Care Physician: Dr. Armin Helton MD Attending Physician: Mr. Aguilera was admitted yesterday morning and underwent lumbar laminectomy decompression at the L4-5 and L3-4 levels. On rounds today he is doing well. His dressing is dry. He reports that he actually got a good night sleep because he does not have the bad back pain that he had been living in. In addition to that his leg pain is all completely gone when he ambulates. Neurologically he is intact. He was given directions regarding his activities in front of his daughter and his that were present. He states he does not need any pain medication as Tylenol does just fine for him and he has plenty at home. He already has an appointment to see me in the office to remove the skin clips. His knows to remove the dressing on Thursday and he can start showering on Thursday. I gave them my cell number in the event that they need to get ahold of me. This is the end of the discharge summary on Gen aguilera. This is Dr. Bauer dictating. Consultations 06/29/23 12:49 Consult: Hospitalist Routine Consulting Provider: [facility] Reason for Consult: Medical Management EMERGENT Consult: No MD Notified: Yes Date Notified: 06/29/23 Time Notified: 13:15 Method of Notification: Text Reason For Visit: Decompression laminectomy L4-5 and Diagnosis Discharge Diagnosis (1) Spinal stenosis of lumbar region: Status: Acute Code(s): M48.061 - Spinal stenosis, lumbar region without neurogenic claudication Qualifiers: Neurogenic claudication status: with neurogenic claudication Qualified Code(s): M48.062 - Spinal stenosis, lumbar region with neurogenic claudication Medications at Discharge Home Medications simvastatin 20 mg tablet 20 mg PO QHS 09/07/19 folic acid 400 mcg tablet 800 mcg PO QHS 09/11/21 cholecalciferol (vitamin D3) 25 mcg (1,000 unit) capsule 25 mcg PO QHS 10/22/22 lisinopril 20 mg tablet 20 mg PO QHS 10/22/22 amlodipine 5 mg tablet 5 mg PO QHS 02/25/23 Weight / BMI Weight Weight: 166 lb 12.8 oz Body Mass Index (BMI) 25.0 ABG / Lab / Microbiology Data Laboratory: Laboratory Results - last 24 hr 06/29/23 14:00: POC Glucose 146 H D/C Instructions May shower in (days): 4 May resume sexual activity in: 6 weeks Meaningful Use Info Meaningful Use Diagnoses (Choose all that apply): None applicable Discharge Plan Admission Admit Date/Time: 06/29/23 10:45 Primary Reason for Your Visit: back surgery Attending Provider: Wilbert Bauer Primary Care Provider: Armin Helton Consulting Providers: Marion Arizmendi; Randy Caldwell; Ania Schultz; Ania Correa; Vadim Joseph; Hanny Barroso; Ivy Cristina; Hiram Shea; Hiram Vance; Low Barros; Aamir Joyce; Suraj Hong; Zuhair Agee; Gen Cuevas; Jerry Jo; Carol Blake; Barry Schaefer; Valentina Peña; Jonel Fuchs; Lj Keller; Verona Hatfield; Eliseo Barragan; Maribell Bear NP; Inderjit Jones Discharge Orders/Prescriptions Prescriptions: No Action simvastatin 20 mg tablet 20 mg PO QHS folic acid 400 mcg tablet 800 mcg PO QHS cholecalciferol (vitamin D3) 25 mcg (1,000 unit) capsule 25 mcg PO QHS lisinopril 20 mg tablet 20 mg PO QHS amlodipine 5 mg tablet 5 mg PO QHS Referrals / Follow Up: Armin Helton MD [Primary Care Provider] - Disposition Disposition (needs filled in before D/C Order can be placed): Home, Self Care
--- NOTE | 2023-06-30 14:20 | CASEMGMT ---
Met with patient to complete MUNOZ form. MUNOZ form explained to patient who voiced understanding and signed form. Original form placed in pt?s chart and copy provided to patient. Pearl Goddard, Discharge Planning Asst
[2023-06-30 17:00] VITALS: BP 125/91; PULSE 71; RESP 18; TEMP 36.7; O2SAT 98
[2023-06-30] MEDS: Tamsulosin HCl 0.4 MG Capsule PO (17:05)
[2023-06-30 20:35] VITALS: BP 127/67; PULSE 65; RESP 18; TEMP 37.2; O2SAT 96
[2023-06-30] MEDS: amLODIPine 5 MG Tablet PO (20:37)
[2023-06-30] MEDS: Lisinopril 20 MG Tablet PO (20:38)
[2023-06-30] MEDS: Atorvastatin Calcium 10 MG Tablet PO (20:39)
[2023-07-01] MEDS: Acetaminophen 500 MG Tablet 1000 MG PO (04:59)
[2023-07-01 08:56] VITALS: BP 128/69; PULSE 65; RESP 18; TEMP 36.9; O2SAT 100
--- NOTE | 2023-07-01 11:38 | CASEMGMT ---
Pt. has order for D/C. RN CM in to pt. room to discuss needs at discharge. Pt's and other family mbr are at the bedside as well. Pt. denies having needs at this time. He states he did well with PT and did the stairs several times. Pt. denies having any further questions/concerns at this time.
[2023-07-01 11:40] VITALS: BP 119/67; PULSE 62; RESP 18; TEMP 36.8; O2SAT 98
--- NOTE | 2023-07-01 11:40 | PN_ITS ---
Subjective Subjective Patient seen and examined. He feels well. He has no complaints and review of systems is otherwise negative. He had some urinary retention yesterday so could not be discharged. However not able to urinate. Review of symptoms otherwise negative. Objective Data Objective Data Vital Signs: Vital Signs Temp Pulse Resp BP Pulse Ox O2 Del Method O2 Flow Rate 98.4 F 65 18 128/69 H 100 Room Air 4 07/01/23 08:56 07/01/23 08:56 07/01/23 08:56 07/01/23 08:56 07/01/23 08:56 07/01/23 08:56 06/29/23 12:15 Oxygen Flow Rate (L/min) 4 Oxygen Delivery Method Room Air Weight: 166 lb 12.8 oz Body Mass Index (BMI) 25.0 Intake & Output: Intake and Output for Last 24 Hours 06/29/23 06/30/23 07/01/23 23:59 23:59 23:59 Intake Total 2169.75 / 2169.75 175 / 175 Output Total 1730 / 2130 1458 / 1458 Balance 439.75 / 39.75 -1283 / -1283 Physical Exam Const alert, oriented x3, no apparent distress, average body habitus and healthy appearing General Appearance: cooperative, well kempt and well developed Orientation / Consciousness: awake, oriented to person, oriented to place and oriented to time HEENT normocephalic, head/scalp atraumatic, moist oral mucous membranes and oropharynx normal Eyes PERRL, EOMs intact bilaterally and conjunctivae normal Neck no lymphadenopathy, supple, no JVD, thyroid normal and no carotid bruits General: trachea midline Lymph Lymphatic: no lymphadenopathy noted and no lymphedema noted Resp normal respiratory effort, normal air movement, no retractions, no use of accessory muscles and clear to auscultation bilaterally Auscultation: Negative for rales, rhonchi or wheezes Cardio regular rate, regular rhythm, S1 normal heart sound, S2 normal heart sound and no murmurs GI normal to inspection, nondistended, normoactive bowel sounds, soft to palpation, non-tender and non-distended Extremity normal capillary refill, no clubbing, cyanosis or edema and no calf tenderness General Extremity: no tenderness to palpation of joints or extremities Skin no rashes or lesions noted Skin Narrative: intact dressing over lower spine at site of surgery General Skin Exam: no breakdown Neuro oriented x3, CN's II-XII intact bilaterally, moves all extremities, no focal motor deficits, no sensory deficits noted and deep tendon reflexes 2+ bilaterally Sensorium / Orientation: awake, alert, oriented to person, oriented to place and oriented to time Speech: speech normal Motor Exam: strength 5/5 throughout and general weakness Psych thought process normal, cooperative and affect normal Appearance: appropriate Assessment & Plan Assessment/Plan (1) Spinal stenosis of lumbar region: QUALIFIERS: Neurogenic claudication status: with neurogenic claudication Qualified Code(s): M48.062 - Spinal stenosis, lumbar region with neurogenic claudication PLAN: Plan # Lumbar spine stenosis * s/p lumbar laminectomy at L3-4 and L4-5 * management as per spine surgery * PT/OT on board * fall precautions * on PO tylenol, oxycodone and morphine prn for pain * #Urinary retention: Resolved. On flomax 0.4mg daily #Hyperlipidemia: on statin #CAD: stable. s/p CABG ~ 1989. #Hypertension: on amlodipine and lisinopril. #History of lymphoma: stable. S/p treatment DVT prophylaxis; SCDs Disposition: as per primary team. Charges/Coding Visit Charges Inpatient E&M: 09504 Subs Hosp L2
== END 2023-07-01 12:01 | disposition home or self-care (01) ==
LOC: SDC 10:58 → MS3 10:58
PROVIDERS: Admitting Provider Orthopaedic Surgery; PCP Internal Medicine; Referring Provider Orthopaedic Surgery; Visit Provider Orthopaedic Surgery
PROC: (CPT 63030; principal; 2023-06-29 07:00)
DX: M48.062 Spinal stenosis, lumbar region with neurogenic claudication (principal); I25.10 Atherosclerotic heart disease of native coronary artery without angina pectoris; E78.2 Mixed hyperlipidemia; I10 Essential (primary) hypertension; Z79.899 Other long term (current) drug therapy; Z79.82 Long term (current) use of aspirin; N40.1 Benign prostatic hyperplasia with lower urinary tract symptoms; I25.2 Old myocardial infarction; Z95.1 Presence of aortocoronary bypass graft; R33.8 Other retention of urine
CPT/HCPCS: 63047; 63048; 00630; 72020; 82962; 94668; 96361; 96365; 96366; 97161; 99221; J7120; G0378; J2405; J3475

== ENCOUNTER → 2024-10-14 | Outpatient (CLI) | payer MEDICARE, SELFPAY ==
--- NOTE | 2024-10-14 16:52 | MRI_ITS ---
PROCEDURE: Noncontrast MRI of the lumbar spine. REASON FOR EXAM: Low back pain radiating into the legs. History of laminectomy 2022. TECHNIQUE: Lumbar spine MRI without and with intravenous gadolinium-based contrast. COMPARISON: 03/10/2023. FINDINGS: The study assumes a presence of 5 lumbar type, eod-sic-gqvrpgy vertebral bodies. The marrow signal of the lumbar vertebral bodies is mildly heterogeneous, without focal abnormal marrow replacement process. No acute lumbar vertebral body fracture. 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 The conus terminates at T12-L1. The included lower spinal cord and lower thoracic intervertebral disc spaces are unremarkable. Included upper sacrum and SI joints are unremarkable. There are a few partially included cysts of the right kidney, the largest posteriorly at 6 cm, not significantly different. Similar mild prominence of the left renal pelvis. Lobulated contour of the urinary bladder is similar and may be due to lack of distention. The included portions of the upper sacrum and SI joints are unremarkable. L1-2: No focal disc herniation, significant central spinal canal, or neural foraminal narrowing. Moderate degenerative facet changes. L2-3: A mild diffuse disc bulge along with ligamentum flavum and facet hypertrophy causes a mild degree of central spinal canal stenosis. No focal disc herniation. Moderate bilateral neural foraminal narrowing. Moderate degenerative facet changes. L3-4: A diffuse disc bulge along with ligamentum flavum and facet hypertrophy, in combination with a 1 cm synovial cyst, which extends from the anterior aspect of the left facet joint, combine to result in severe central spinal canal narrowing, just below the level of the disc space (image 8 sagittal T2 sequence). There is moderate/severe bilateral neural foraminal narrowing. L4-5: Interval posterior decompression at this level. There is a diffuse disc bulge which flattens the ventral thecal sac. Wcampiuo-bc-onhfad left and severe right neural foraminal narrowing. Moderate degenerative facet changes. There also appear to be synovial cysts which extend from the medial facet joints at this level, contributing to significant transverse central spinal canal narrowing, the largest on the right at 7 mm (image 10 of the axial T2 sequence). L5-S1: A diffuse disc bulge along with ligamentum flavum and facet hypertrophy causes mild central spinal canal narrowing, slightly asymmetric to the right. No focal disc herniation. Moderate to severe bilateral neural foraminal narrowing. Moderate degenerative facet changes. MRI/Spine Lumbar (Routine) IMPRESSION: Similar heterogeneous appearance of the marrow, without acute lumbar vertebral body fracture or abnormal marrow replacement process. Interval posterior decompression at L4-5. Extensive multilevel degenerative di sc and facet disease in the lumbar spine as described level by level above. There is severe central spinal canal stenosis just below the level of the disc space at the L3-4 level. This appears to be due to a combination of ligamentum flavum/facet hype rtrophy and a 1 cm synovial cyst extending from the anterior margin of the left facet joint. Posterior decompression at the L4-5 level. Below the level of the disc space a t the L4-5 level, there appear to be bilateral synovial cysts, the largest on the right, which contribute to cltqliai-pf-kxeke e transverse central spinal canal narrowing. Multilevel degenerative facet changes and bilateral neural foraminal narrowing as described level by level above in the lumbar spine. Relatively similar partially included right renal cysts, the largest at 6 cm. No follow-up imaging recommended. The urinary bladder is distended, with lobulated contour, and may be due to chr onic outlet obstruction. The appearance is not significantly changed from the prior study of 03/10/2023. Reading [facility]
== END | disposition home or self-care (01) ==
PROVIDERS: PCP Internal Medicine; Referring Provider Orthopaedic Surgery Orthopaedic Surgery of the Spine; Visit Provider Orthopaedic Surgery Orthopaedic Surgery of the Spine
DX: M43.16 Spondylolisthesis, lumbar region (principal)
CPT/HCPCS: 72148

== ENCOUNTER 2024-10-24 09:27 | Emergency (ER) | payer MEDICARE, SELFPAY ==
[2024-10-24 09:28] VITALS: BP 139/74; PULSE 89; RESP 18; TEMP 36.6; O2SAT 98; BMI 25.2
[2024-10-24 09:33] VITALS: O2SAT 100
--- NOTE | 2024-10-24 09:46 | RAD_ITS ---
PROCEDURE: CHEST 1 VIEW (PORTABLE) REASON FOR EXAM: Extreme anxiety and shortness of breath. TECHNIQUE: Single frontal image including the chest and abdomen. COMPARISON: None. FINDINGS: EKG electrodes are seen. Prior CABG. Elevation of the right hemidiaphragm. No focal infiltrate is seen. Atherosclerotic calcification of the aortic arch. Mild degree of degenerative changes of the thoracic vertebrae. RAD/Chest 1 View (Portable) IMPRESSION: Elevation of the right hemidiaphragm. Findings suggestive of scarring at the l jordy bases. Reading Location: [id number]
--- NOTE | 2024-10-24 09:47 | EKG12_ITS ---
Test Reason : SOB Blood Pressure : */* mmHG Vent. Rate : 77 BPM Atrial Rate : 77 BPM P-R Int : 122 ms QRS Dur : 118 ms QT Int : 410 ms P-R-T Axes : 89 -56 71 degrees QTcB Int : 463 ms Normal sinus rhythm Left anterior fascicular block Nonspecific ST abnormality Abnormal ECG Confirmed by Anup Johnson ([id number]), production editor KARIME ENRIQUE ([id number]) on 10/26/2024 7:58:46 AM Referred By: Confirmed By: Anup Johnson
--- NOTE | 2024-10-24 09:47 | ED.VIS.DYS ---
HPI History of Present Illness Chief Complaint: Shortness of Breath Informant: patient, spouse/S.O. and EMS Narrative Narrative: 89-year-old male presenting to the emergency room with a chief complaint of dyspnea and anxiety. Patient family provide not very specific details of his recent care. I am able to ascertain that about a month ago he was put on 3 medications for worsening back pain through pain management. 1 began within another began with the and the third was gabapentin. He states he was on them at a very low dose for about 3 weeks and the prescription ran out on a Thursday. 2 days later he had an appointment with his pain management doctor and it was felt that the medications would not be continued. It was reported that he was having hallucinations on the medications. He states that shortly after that he developed anxiety. He has been feeling shaky. He did not sleep for 4 days. For several days without the medicine however he was not symptomatic. He states that he has not been sleeping well. He has not been eating well. He feels short of breath. He states that today he woke up with a nightmare that he was wrestling with a monster and stated that it seemed very real. He states his his anxiety has been significantly worse. No diarrhea. He has an appointment scheduled with his pain management doctor and appointment tomorrow with Dr. Dodd for ortho spine. He had previously underwent laminectomy of the lumbar spine (2022). 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 Home Medications ?Medication ?Instructions ?Recorded ?Last Taken ?Type simvastatin 20 mg tablet 20 mg PO QHS 09/07/19 06/28/23 21:30 History folic acid 400 mcg tablet 800 mcg PO QHS 09/11/21 06/28/23 21:30 History cholecalciferol (vitamin D3) 25 25 mcg PO QHS 10/22/22 06/28/23 21:30 History mcg (1,000 unit) capsule lisinopril 20 mg tablet 20 mg PO QHS 10/22/22 06/28/23 21:30 History amlodipine 5 mg tablet 5 mg PO QHS 02/25/23 06/28/23 21:30 History aspirin 81 mg tablet,delayed 81 mg PO DAILY 10/21/23 Unknown History release (Adult Aspirin Regimen) Allergy/AdvReac Type Severity Reaction Status Date / Time milk AdvReac Severe Diarrhea Verified 10/24/24 09:31 grass pollen AdvReac Unknown Unknown Verified 10/24/24 09:31 Family History Father Cancer Lung Mother Cancer Gastric Hypertension Brother Cancer Lung Brother Melanoma Surgical History Hx of transurethral resection of prostate Hx of colonoscopy Hx of esophagogastroduodenoscopy Hx of right cataract extraction Hx of left cataract extraction History of gastrectomy History of coronary artery bypass surgery (~1989) Social History Smoking Status: Never smoker alcohol intake: never substance use type: does not use caffeine: Yes Type: carbonated beverages Number of servings: 1 and coffee Number of servings: 3 ROS ROS ED Constitutional Constitutional ED: Denies chills, fever(s) or weight loss Eyes Eyes: Denies change in vision or diplopia ENT ENT ED: Denies ear pain, rhinorrhea or sore throat Cardiovascular Cardiovascular: Denies chest pain, orthopnea, palpitations or racing heartbeat Respiratory/Chest Respiratory/Chest: Reports dyspnea; Denies cough or orthopnea Gastrointestinal Gastrointestinal: Reports nausea; Denies abdominal pain, diarrhea or vomiting Genitourinary Genitourinary ED: Denies dysuria, hematuria or urinary frequency Musculoskeletal Musculoskeletal: Denies arthralgias or myalgias Integumentary Denies abscess or rash Neurologic Neurologic: Denies headache(s) or weakness Psychiatric Psychiatric: Reports anxiety; Denies depression, suicidal ideation or suicidal thoughts Endocrine Endocrinology: Denies polydipsia, polyphagia or polyuria Allergic/Immunologic Allergic/Immunologic ED: Denies mouth swelling, tongue swelling or urticaria EXAM Physical Exam Const Vital Signs: 10/24/24 09:28 10/24/24 09:33 Temperature 98 F Temperature Source Oral Pulse Rate 89 Respiratory Rate 18 Respiratory Effort Normal Respiratory Depth Normal Respiratory Pattern Normal Blood Pressure 139/74 H Blood Pressure Mean 95 Pulse Ox 98 Oxygen Delivery Method Room Air Room Air Positive well nourished and well developed General Appearance ED: well developed HEENT Reports normocephalic, head/scalp atraumatic and moist mucous membranes Eyes PERRL and EOMs intact bilaterally Neck no lymphadenopathy, supple and no JVD Resp clear to auscultation bilaterally Resp Narrative: Patient is tachypneic moving good lung volumes Cardio regular rate, regular rhythm and no murmurs GI normal to inspection, nondistended, normoactive bowel sounds and non-tender Palpation: soft Back/Spine no CVA tenderness and normal ROM Extremity normal to inspection General Extremety ED: Negative for edema General Extremity: Negative for edema Neuro oriented x3 and CN's II-XII intact bilaterally Sensorium / Orientation: alert Motor Exam: strength 5/5 throughout Psych Psych Narrative: Patient appears quite anxious. He is tremulous in the hands. He is breathing fast and has shaky voice. Mood & Affect: anxious; Negative for depressed or tearful Skin no rashes or lesions noted and no wounds MDM MDM MDM Narrative Medical decision making narrative: Differential diagnosis includes but not limited to cardiac dysrhythmia pneumothorax pneumonia pleural effusion volume overload withdrawal anxiety reaction Wayne interpretation of the chest x-ray is no acute process. EKG is in normal sinus rhythm. Patient received 1/2 mg of Ativan IV. His symptoms have significantly improved. states he is completely different than when he came in. It has been a week plus since he last was on the medicines and not have a hard time saying this is all withdrawal as he was only on the medicines for 3 weeks and they were very low dose according to him. I think is most likely anxiety. He had a good response to Ativan. I will write for a few Ativan to help him over the next couple days but would ask for follow-up with his primary care doctor. He is seeing orthopedics tomorrow for the back. I do not feel that blood work or inpatient observation is indicated at this time. History & Record Review Discussion w/independent historian: Patient and Family Radiography Diagnostic Testing: Clinical Impression(s) from Imaging Studies Chest X-Ray 10/24/24 09:46 IMPRESSION: Elevation of the right hemidiaphragm. Findings suggestive of scarring at the lung bases. Reading Location: [facility] EKG Initial EKG: Attestation: I personally reviewed and interpreted this EKG as follows: Comments: Normal sinus rhythm ventricular rate of 77 bpm. Left anterior fascicular block is noted. Discharge Plan Triage Chief Complaint: Shortness of Breath ED Provider: Low Phelps Dx/Rx/DC Orders Prescriptions: No Action simvastatin 20 mg tablet 20 mg PO QHS folic acid 400 mcg tablet 800 mcg PO QHS cholecalciferol (vitamin D3) 25 mcg (1,000 unit) capsule 25 mcg PO QHS lisinopril 20 mg tablet 20 mg PO QHS aspirin [Adult Aspirin Regimen] 81 mg tablet,delayed release (DR/EC) 81 mg PO DAILY amlodipine 5 mg tablet 5 mg PO QHS Primary Care Provider: Armin Helton Referrals: Armin Helton MD [Primary Care Provider] - Print Language: Turkish
[2024-10-24] MEDS: Lorazepam 2 MG/ML WCH Syringe 0.5 MG IV (09:54)
[2024-10-24 11:27] VITALS: BP 117/80; PULSE 67; RESP 15; O2SAT 96
== END 2024-10-24 11:48 | disposition home or self-care (01) ==
LOC: ED 11:41
PROVIDERS: Emergency Provider Emergency Medicine; PCP Internal Medicine; Visit Provider Emergency Medicine
DX: R06.02 Shortness of breath (principal); I25.10 Atherosclerotic heart disease of native coronary artery without angina pectoris; M54.9 Dorsalgia, unspecified; E78.2 Mixed hyperlipidemia; I10 Essential (primary) hypertension; F41.9 Anxiety disorder, unspecified
CPT/HCPCS: 71045; 93005; 96374; 99285; A4216